=== PATIENT | female | born 1975 | race Caucasian/White ===

== ENCOUNTER 2023-12-19 19:21 | Emergency (ER) | payer MEDICARE ==
[~2023-12-19] VITALS: Ht 160 cm; Wt 77.1 kg
[2023-12-19 20:23] LABS: BASOPHILS % 0.3 % (0.0-1.0); EOSINOPHILS # (AUTO) 0.1 (0.0-0.4); EOSINOPHILS % 0.9 % (0.0-6.0); HEMATOCRIT 36.6 % (34.2-44.1); HEMOGLOBIN 11.7 g/dL (12.0-16.0); LYMPHOCYTES # (AUTO) 2.3 (1.0-3.2); LYMPHOCYTES % 16.6 % (18.0-39.1); MEAN CORPUSCULAR HEMOGLOBIN 27.4 pg (28-32); MEAN CORPUSCULAR VOLUME 85.7 fL (81-99); MONOCYTES # (AUTO) 0.9 (0.2-0.8); MONOCYTES % 6.7 % (4.4-11.3); NEUTROPHILS # (AUTO) 10.1 (2.1-6.9); NEUTROPHILS % 74.2 % (38.7-80.0); PLATELET COUNT 448 x10e3/uL (140-360); RED BLOOD COUNT 4.27 x10e6/uL (3.6-5.1); WHITE BLOOD COUNT 13.66 x10e3/uL (4.8-10.8)
[2023-12-19] MEDS: SODIUM CHLORIDE 0.9% 1000ML 1,000 ML IV STA (20:23)
[2023-12-19 20:42] LABS: ALBUMIN 3.5 g/dL (3.5-5.0); ANION GAP 13.3 mmol/L (8-16); BILIRUBIN,TOTAL 0.4 mg/dL (0.2-1.2); CALCIUM 9.4 mg/dL (8.4-10.2); CREATINE KINASE 84 IU/L (29-168); CREATININE, SERUM 0.73 mg/dL (0.57-1.11); TOTAL PROTEIN 7.1 g/dL (6.5-8.1)
[2023-12-19 20:44] LABS: POTASSIUM 3.3 mmol/L (3.5-5.1)
[2023-12-19 20:48] LABS: TROPONIN I < 0.001 ng/mL (0-0.300)
[2023-12-19] MEDS ORDERED: IOPAMIDOL 370 MG/ML 100 ML INFUS..BTL INJ ONE (21:06)
[2023-12-19 22:09] LABS: OPIATES SCREEN,URINE POSITIVE (NEGATIVE)
[2023-12-19 22:10] LABS: AMPHETAMINES SCREEN,URINE NEGATIVE (NEGATIVE); BENZODIAZEPINES SCREEN,URINE POSITIVE (NEGATIVE); CANNABINOIDS SCREEN,URINE NEGATIVE (NEGATIVE); PHENCYCLIDINE SCREEN,URINE NEGATIVE (NEGATIVE)
[2023-12-19 22:11] LABS: METHADONE SCREEN, URINE NEGATIVE (NEGATIVE); PREGNANCY TEST, URINE NEGATIVE (NEGATIVE)
[2023-12-19 22:24] VITALS: PULSE 86; RESP 18; O2SAT 100
[2023-12-19 23:16] VITALS: TEMP 99.9
== END 2023-12-20 00:20 | disposition home or self-care (01) ==
LOC: ER 19:25
DX: R53.1 Weakness (principal); R07.89 Other chest pain; J90 Pleural effusion, not elsewhere classified; M79.622 Pain in left upper arm; R91.8 Other nonspecific abnormal finding of lung field; N83.202 Unspecified ovarian cyst, left side; Z85.6 Personal history of leukemia
CPT/HCPCS: 36415; 71260; 74177; 80053; 80307; 81025; 82550; 83690; 83880; 84484; 84702; 85025; 93005; 99284; J7030; Q9967